=== PATIENT | female | born 1940 | race Caucasian/White ===

== ENCOUNTER 2023-12-20 15:18 | Emergency (ER) | payer MEDICARE, MEDICAID ==
[~2023-12-20] VITALS: Ht 144.8 cm; Wt 65.3 kg
[2023-12-20 15:30] VITALS: BP 148/100; PULSE 80; RESP 19; TEMP 97.5; O2SAT 96
[2023-12-20 16:05] LABS: APPEARANCE,URINE CLEAR (CLEAR); BILIRUBIN,URINE NEGATIVE (NEGATIVE); BLOOD, URINE TRACE-I (NEGATIVE); COLOR,URINE YELLOW (YELLOW); LEUKOCYTE ESTERASE ,URINE NEGATIVE (NEGATIVE); NITRITE, URINE NEGATIVE (NEGATIVE); PROTEIN,URINE NEGATIVE (NEGATIVE); UGLUCOSE NEGATIVE (NEGATIVE); UROBILINOGEN,URINE 0.2 EU/dL (0.2 - 1)
[2023-12-20 16:16] VITALS: O2SAT 96
[2023-12-20 16:23] VITALS: BP 152/74; PULSE 72; RESP 19; TEMP 97.5; O2SAT 96
[2023-12-20 16:31] LABS: ANION GAP 13.3 (8-16); CALCIUM 9.1 mg/dL (8.5-10.1); CARBON DIOXIDE 28.4 mmol/L (21-32); CHLORIDE 103 mmol/L (98-107); CREATININE 1.2 mg/dL (0.6-1.3); GLUCOSE 111 mg/dL (74-106); POTASSIUM 4.7 mmol/L (3.5-5.1); SODIUM SERUM 140 mmol/L (136-145); UREA NITROGEN, BLOOD 17 mg/dL (7-18)
[2023-12-20] MEDS ORDERED: GUAI-976 PO (16:44)
[2023-12-20] MEDS ORDERED: BENZ200C4 PO (16:45)
== END 2023-12-20 16:49 | disposition home or self-care (01) ==
LOC: MED 15:18
DX: J06.9 Acute upper respiratory infection, unspecified (principal); B97.89 Other viral agents as the cause of diseases classified elsewhere; R45.82 Worries; I10 Essential (primary) hypertension; E78.00 Pure hypercholesterolemia, unspecified; Z85.3 Personal history of malignant neoplasm of breast; Z79.899 Other long term (current) drug therapy; Z88.0 Allergy status to penicillin; Z88.1 Allergy status to other antibiotic agents
CPT/HCPCS: 36415; 80048; 81003; 99283

== ENCOUNTER 2024-05-05 14:36 | Inpatient (IN) | payer OTHER, MEDICAID ==
[~2024-05-05] VITALS: Ht 142.2 cm; Wt 68.0 kg
[~2024-05-05 14:36] MED LIST: BENZ200C4 PO; GUAI-976 PO
[2024-05-05 14:41] VITALS: BP 123/59; PULSE 75; RESP 16; TEMP 98.5; O2SAT 96
[2024-05-05 15:53] LABS: BASOPHILS % (AUTO) 0.4 % (0.0-2.0); EOSINOPHILS # (AUTO) 0.1 K/uL (0-0.4); EOSINOPHILS % (AUTO) 1.9 % (0.0-4.0); HEMATOCRIT 42.5 % (36-48); HEMOGLOBIN 14.4 g/dL (12.0-16.0); LYMPHOCYTES # (AUTO) 1.7 K/uL (2.5-16.5); LYMPHOCYTES % (AUTO) 24.2 % (20.5-51.1); MEAN CORPUSCULAR HEMOGLOBIN 29 pg (27-31); MEAN CORPUSCULAR HGB CONC 34 g/dL (33-37); MEAN CORPUSCULAR VOLUME 86.1 fL (80-94); MONOCYTES # (AUTO) 0.4 K/uL (0.8-1.0); MONOCYTES % (AUTO) 5.2 % (1.7-9.3); NEUTROPHILS # (AUTO) 4.9 K/uL (1.8-7.7); NEUTROPHILS % (AUTO) 68.3 % (42.2-75.2); PLATELET COUNT (AUTO) 215 K/uL (140-450); RED BLOOD CELL COUNT(AUTO) 4.94 MIL/uL (4.20-5.40); RED CELL DISTRIBUTION WIDTH 13.5 % (11.6-13.7); WHITE BLOOD COUNT (AUTO) 7.1 K/uL (4.8-10.8)
[2024-05-05 16:18] LABS: ANION GAP 10.9 (8-16); CALCIUM 8.8 mg/dL (8.5-10.1); CHLORIDE 103 mmol/L (98-107); CREATININE 1.1 mg/dL (0.6-1.3); GLUCOSE 113 mg/dL (74-106); POTASSIUM 3.9 mmol/L (3.5-5.1); SODIUM SERUM 138 mmol/L (136-145); UREA NITROGEN, BLOOD 14 mg/dL (7-18)
[2024-05-05 16:24] LABS: INR 1.05 (0.8-1.2); PARTIAL THROMBOPLASTIN TIME 24.8 secs (22-35.6)
[2024-05-05] MEDS ORDERED: ALUMINUM HYD/MAG/SIMETHICONE 30 ML UDC ONE (17:41)
[2024-05-05] MEDS: ALUMINUM HYD/MAG/SIMETHICONE 30 ML UDC PO ONE (17:42)
[2024-05-05] MEDS: HYDROXYZINE HYDROCHLORIDE 25 MG TAB PO ONE (17:45)
[2024-05-05] MEDS ORDERED: ACETAMINOPHEN 325 MG TAB PO PRN (17:45)
[2024-05-05] MEDS: KETOROLAC 30 MG/ML VIAL IM ONE (17:46)
[2024-05-05] MEDS: NACL 0.9% 1,000 ML IV SCH (18:08)
[2024-05-05] MEDS ORDERED: ESCI20TA PO (19:46)
[2024-05-05] MEDS ORDERED: LORA-476 PO (19:46)
[2024-05-05] MEDS ORDERED: CLON-1202 PO (19:46)
[2024-05-06] MEDS: HYDROcodone/APAP 5/325 MG 1 TAB TAB PO PRN (02:02)
[2024-05-06 07:19] LABS: BASOPHILS % (AUTO) 0.6 % (0.0-2.0); EOSINOPHILS # (AUTO) 0.2 K/uL (0-0.4); EOSINOPHILS % (AUTO) 3.8 % (0.0-4.0); HEMATOCRIT 39.3 % (36-48); HEMOGLOBIN 13.3 g/dL (12.0-16.0); LYMPHOCYTES # (AUTO) 2.4 K/uL (2.5-16.5); LYMPHOCYTES % (AUTO) 39.9 % (20.5-51.1); MEAN CORPUSCULAR HEMOGLOBIN 30 pg (27-31); MEAN CORPUSCULAR HGB CONC 34 g/dL (33-37); MEAN CORPUSCULAR VOLUME 87.2 fL (80-94); MONOCYTES # (AUTO) 0.4 K/uL (0.8-1.0); MONOCYTES % (AUTO) 6.1 % (1.7-9.3); NEUTROPHILS % (AUTO) 49.6 % (42.2-75.2); PLATELET COUNT (AUTO) 189 K/uL (140-450); RED BLOOD CELL COUNT(AUTO) 4.51 MIL/uL (4.20-5.40); RED CELL DISTRIBUTION WIDTH 13.6 % (11.6-13.7); WHITE BLOOD COUNT (AUTO) 5.9 K/uL (4.8-10.8)
[2024-05-06 08:00] VITALS: PULSE 62; RESP 18; O2SAT 97
[2024-05-06 09:10] LABS: ANION GAP 15.1 (8-16); CALCIUM 8.7 mg/dL (8.5-10.1); CARBON DIOXIDE 25.8 mmol/L (21-32); CHLORIDE 103 mmol/L (98-107); CREATININE 1.1 mg/dL (0.6-1.3); GLUCOSE 107 mg/dL (74-106); POTASSIUM 3.9 mmol/L (3.5-5.1); SODIUM SERUM 140 mmol/L (136-145); UREA NITROGEN, BLOOD 16 mg/dL (7-18)
[2024-05-06 12:00] VITALS: BP 138/74; PULSE 62; PULSE 68; RESP 18; TEMP 97.6; O2SAT 97
[2024-05-06] MEDS ORDERED: AMLO10TA89 PO (15:00)
[2024-05-06] MEDS ORDERED: ANAS1TAB56 PO (15:01)
[2024-05-06 16:00] VITALS: BP 107/61; PULSE 61; RESP 18; TEMP 97.5; O2SAT 98
[2024-05-06 20:00] VITALS: BP 117/55; PULSE 58; PULSE 62; RESP 19; TEMP 97.9; O2SAT 95
[2024-05-07] VITALS: BP 128/72; PULSE 65; PULSE 67; RESP 17; TEMP 98.7; O2SAT 96
[2024-05-07 04:00] VITALS: BP 117/69; PULSE 60; PULSE 61; RESP 18; TEMP 96.8; O2SAT 95
[2024-05-07 07:35] LABS: BASOPHILS % (AUTO) 0.7 % (0.0-2.0); EOSINOPHILS # (AUTO) 0.2 K/uL (0-0.4); EOSINOPHILS % (AUTO) 4.4 % (0.0-4.0); HEMATOCRIT 38.4 % (36-48); HEMOGLOBIN 12.8 g/dL (12.0-16.0); LYMPHOCYTES # (AUTO) 2.2 K/uL (2.5-16.5); LYMPHOCYTES % (AUTO) 39.1 % (20.5-51.1); MEAN CORPUSCULAR HEMOGLOBIN 29 pg (27-31); MEAN CORPUSCULAR HGB CONC 33 g/dL (33-37); MEAN CORPUSCULAR VOLUME 86.3 fL (80-94); MONOCYTES # (AUTO) 0.4 K/uL (0.8-1.0); MONOCYTES % (AUTO) 6.9 % (1.7-9.3); NEUTROPHILS # (AUTO) 2.8 K/uL (1.8-7.7); NEUTROPHILS % (AUTO) 48.9 % (42.2-75.2); PLATELET COUNT (AUTO) 189 K/uL (140-450); RED BLOOD CELL COUNT(AUTO) 4.45 MIL/uL (4.20-5.40); RED CELL DISTRIBUTION WIDTH 13.2 % (11.6-13.7); WHITE BLOOD COUNT (AUTO) 5.7 K/uL (4.8-10.8)
[2024-05-07 08:00] VITALS: BP 136/76; PULSE 58; PULSE 60; RESP 18; TEMP 98.3; O2SAT 96
[2024-05-07 08:06] LABS: ANION GAP 10.3 (8-16); CALCIUM 8.5 mg/dL (8.5-10.1); CHLORIDE 104 mmol/L (98-107); GLUCOSE 89 mg/dL (74-106); POTASSIUM 4.3 mmol/L (3.5-5.1); SODIUM SERUM 139 mmol/L (136-145); UREA NITROGEN, BLOOD 18 mg/dL (7-18)
[2024-05-07] MEDS: ANASTROZOLE 1 MG TAB PO SCH (09:54)
[2024-05-07] MEDS: amLODIPine 5 MG TAB PO SCH (09:54)
[2024-05-07 12:00] VITALS: BP 115/54; PULSE 59; PULSE 62; RESP 18; TEMP 98.6; O2SAT 96
[2024-05-07] MEDS ORDERED: IBUP-2213 PO (12:06)
== END 2024-05-07 16:25 | disposition home or self-care (01) | DRG 206 ==
LOC: MED 14:36 → MTU 17:47
PROVIDERS: ADMIT Student in an Organized Health Care Education/Training Program; ATTEND Student in an Organized Health Care Education/Training Program
DX: M94.0 Chondrocostal junction syndrome [Tietze] (principal); C77.9 Secondary and unspecified malignant neoplasm of lymph node, unspecified; K21.9 Gastro-esophageal reflux disease without esophagitis; I10 Essential (primary) hypertension; Z88.0 Allergy status to penicillin; Z79.899 Other long term (current) drug therapy; C50.919 Malignant neoplasm of unspecified site of unspecified female breast
CPT/HCPCS: 36415; 71045; 73030; 80048; 83880; 84484; 85025; 85379; 85610; 85730; 87081; 93005; J1885